=== PATIENT | female | born 1990 | race Caucasian/White ===

== ENCOUNTER → 2023-06-12 15:49 | Outpatient (REF) | payer OTHER, SELFPAY ==
--- NOTE | 2023-06-12 15:56 | CA_ITS ---
Transthoracic Echocardiogram Patient (Last, First, Middle): Lizette Pruett C Gender: Female Date of : 1990 Age: 33 Procedure Date: 06/12/2023 Procedure Type: Transthoracic Echocardiogram Location: OP Height: 165.1 cm Weight: 104.33 kg BSA: 2.10 m2 Heart Rate: bpm BP: 117 / 60 mmHg Manufacturing Analyst: Referring MD: Christiano Sampson MD Meter Shop Superintendent: Vitaly Sung MD Symptoms: RO7.9 CHEST PAIN I10 HTN Study Quality: Fair, adequate with Contrast ECG Rhythm: Sinus Conclusions: - Normal study Findings Procedure Information Contrast agent, definity, is being given per protocol without apparent complications. Left Ventricle Normal left ventricular size, thickness, and systolic function. The visually estimated ejection fraction is between 60-65%. Diastolic function is normal for age. Right Ventricle Normal right ventricular cavity size and systolic function. Atria Both atria are normal in size. There is no evidence of interatrial shunt. Aortic Valve Normal aortic valve structure and function. There is no aortic valve stenosis. There is no aortic valve regurgitation. Mitral Valve Normal mitral valve structure and function. There is trace mitral valve regurgitation. There is no mitral valve stenosis. Pulmonic Valve The pulmonic valve is likely normal. There is trace pulmonic valve regurgitation. Tricuspid Valve Normal tricuspid valve structure. There is trace tricuspid valve regurgitation. The right ventricular systolic pressure is normal. The right ventricular systolic pressure is 12 mmHg. Normal right atrial pressure. There is no evidence of pulmonary hypertension. Great Vessels All visible segments of the aorta are normal in size. The visualized portions of the pulmonary artery and branches are normal. Venous The inferior vena cava is normal in size and collapses greater than 50% with inspiration. Pericardium/Pleural There is no evidence of pericardial effusion. Prior Study Comparison No prior study available for comparison. Measurements 2D Linear Measurements IVSd: 0.84 0.6-0.9/0.6-1.0 cm LVIDd: 4.74 3.9-5.3/4.2-5.9 cm LVIDd Index: 2.26 2.4-3.2/2.2-3.1 cm/m2 LVIDs: 2.73 2.0-3.6 cm LVPWd: 0.81 0.7-1.1 cm Ao Root: 3.20 2.1-3.5 cm LA Diam: 3.70 2.7-3.8/3.0-4.0 cm LAIDs Index: 1.76 1.5-2.3 cm/m2 LV Mass: 160.98 67-162/88-224 g LV Mass Index: 76.66 43-95/49-115 g/m2 LVOT Diam: 2.00 3.0+(-)1.3 cm Mitral Valve MV Pk E: 0.96 MV PK A: 0.74 MV Decel Time: 161.00 E/A: 1.30 E'Lateral: 15.40 E'Medial: 10.80 E/E' Med: 8.90 E/E' Lat: 6.30 PHT: 47.00 MVA PHT: 4.68 Decel Jewell: 6.00 Aortic Valve AoV Pk Manpreet: 1.35 AoV Mn Manpreet: 0.89 AoV VTI: 0.30 AoV Pk Grad: 7.00 Aov Mn Grad: 4.00 KARLEY Cont.VTI: 2.81 LVOT LVOT Pk Manpreet: 1.27 LVOT Mn Manpreet: 0.80 LVOT VTI: 0.27 LVOT Pk Grad: 6.00 LVOT Mn Grad: 3.00 LVOT Diam: 2.00 LVOT Area: 3.14 Diastolic Function MV Pk E: 0.96 MV Pk A: 0.74 E/A: 1.30 E'Medial: 10.80 E/E' Med: 8.90 E' Laterial: 15.40 E/E' Lat: 6.30 Right Ventricle TAPSE (mm): 29.00 TVS' Manpreet: 13.00 Tricuspid Valve TR Pk Manpreet: 1.54 TR Pk Grad: 9.00 RA Press: 3.00 RVSP: 12.00 Great Vessels Aorta Ao Root-2D: 3.20 2.0-3.7 cm Ao Asc: 2.80 2.1-3.4 cm Pulmonary Valve PV Pk Manpreet: 1.14 Peak PV Grad: 5.00 Updated in Other Vendor System with Status of Final Vitaly Sung MD electronically signed on 06/13/2023 11:26:12 AM with status of Final
== END ==
LOC: HO.CARD 15:49
PROVIDERS: Visit Provider Internal Medicine
DX: R07.9 Chest pain, unspecified (principal); I10 Essential (primary) hypertension
CPT/HCPCS: 93306; Q9957

== ENCOUNTER → 2023-06-12 15:56 | Outpatient (BNV) | payer OTHER, SELFPAY | PROVIDERS: Visit Provider Internal Medicine Cardiovascular Disease | DX: R07.9 Chest pain, unspecified (principal); I10 Essential (primary) hypertension | CPT/HCPCS: 93306 ==